=== PATIENT | female | born 1945 | race Caucasian/White ===

== ENCOUNTER 2019-11-18 12:57 | Outpatient (RCR) | payer SELFPAY | END 2019-11-26 00:01 | LOC: SPT 12:57 | PROVIDERS: Family Provider Family Medicine | DX: M54.5 Low back pain (principal); M25.562 Pain in left knee; M25.572 Pain in left ankle and joints of left foot | CPT/HCPCS: 97110 ×5; 97116 ×3; 97161 ==

== ENCOUNTER 2019-11-27 06:00 | Outpatient (RCR) | payer MEDICARE, BC, SELFPAY | END 2019-12-27 23:59 | disposition home or self-care (01) | LOC: APT 06:00 | PROVIDERS: Family Provider Family Medicine; PCP Family Medicine; Visit Provider Orthopaedic Surgery | DX: Z47.1 Aftercare following joint replacement surgery (principal); Z96.652 Presence of left artificial knee joint; M25.562 Pain in left knee | CPT/HCPCS: 97110; 97140 ==

== ENCOUNTER 2019-12-24 06:00 | Outpatient (RCR) | payer MEDICARE, BC, SELFPAY | END 2019-12-27 23:59 | disposition home or self-care (01) | LOC: APT 06:00 | PROVIDERS: Family Provider Family Medicine; PCP Family Medicine; Referring Provider Family Medicine; Visit Provider Family Medicine | DX: M54.5 Low back pain (principal) | CPT/HCPCS: 97110; 97112; 97140; 97161 ==

== ENCOUNTER 2019-12-28 06:00 | Outpatient (RCR) | payer MEDICARE, BC, SELFPAY | END 2020-01-25 23:59 | disposition home or self-care (01) | LOC: APT 06:00 | PROVIDERS: Family Provider Family Medicine; PCP Family Medicine; Visit Provider Orthopaedic Surgery | DX: M54.5 Low back pain (principal) | CPT/HCPCS: 97110 ==

== ENCOUNTER 2019-12-28 06:00 | Outpatient (RCR) | payer MEDICARE, BC, SELFPAY | END 2020-01-25 23:59 | disposition home or self-care (01) | LOC: APT 06:00 | PROVIDERS: Family Provider Family Medicine; PCP Family Medicine; Referring Provider Family Medicine; Visit Provider Family Medicine | DX: Z53.9 Procedure and treatment not carried out, unspecified reason (principal) | CPT/HCPCS: 97110 ==

== ENCOUNTER → 2020-01-13 14:35 | Outpatient (BNVA) | payer MEDICARE, BC, SELFPAY | PROVIDERS: Family Provider Family Medicine; PCP Family Medicine; Visit Provider Specialist | DX: G25.0 Essential tremor (principal) | CPT/HCPCS: 99214 ==

== ENCOUNTER 2020-01-27 | Outpatient (RCR) | payer MEDICARE, BC, SELFPAY | END 2020-02-13 | disposition home or self-care (01) | LOC: APT | PROVIDERS: Family Provider Family Medicine; PCP Family Medicine; Referring Provider Family Medicine; Visit Provider Family Medicine | DX: M54.5 Low back pain (principal) | CPT/HCPCS: 97110; 97530 ==

== ENCOUNTER → 2020-05-14 13:41 | Outpatient (BNVA) | payer MEDICARE, BC, SELFPAY | PROVIDERS: Family Provider Family Medicine; PCP Family Medicine; Visit Provider Specialist | DX: R25.1 Tremor, unspecified (principal) | CPT/HCPCS: 99213 ==

== ENCOUNTER 2020-08-11 08:19 | Emergency (ER) | payer MEDICARE, BC, SELFPAY ==
[2020-08-11] VITALS (7 sets, daily range): BP systolic 102–144; BP diastolic 59–73; PULSE 74–86; RESP 10–24; TEMP 36.5; O2SAT 89–97; BMI 26.6
--- NOTE | 2020-08-11 09:00 | XR_ITS ---
WS: [id number] EXAM: AP CHEST: PORTABLE UPRIGHT DATE OF EXAM: 08/11/2020, 0919 hours COMPARISON: NONE HISTORY: Patient is 74 years old with low oxygen saturation and weakness. FINDINGS: The cardiac silhouette is normal in size. The mediastinal contours are normal. The pulmonary vas cularity is normal. Chronic lung changes are demonstrated. Lungs are clear of consolidation. There is no effusion or pneumothorax. Overall bone density is decreased. Scattered degenerative changes se en in the spine and both shoulders. XR/XR chest 1V portable [id number] IMPRESSION: Chronic lung changes. No acute pulmonary disease.
--- NOTE | 2020-08-11 09:13 | CT_ITS ---
WS: [id number] EXAM: CT head wo con* [id number] DATE OF EXAMINATION: 08/11/2020, 0955 hours COMPARISON: Head CT from 09/30/2014. HISTORY: 74 years old with increasing generalized weakness. Tremors. TECHNIQUE: Thin slice imaging obtained through the brain. Viewed in brain, subdural and bone window with reconst ructions. DLP: 788.[address] scans at [facility] use at least one of these dose optimization techniques: automat ed exposure control; mA and/or kV adjustment per patient size (includes targeted exams where dose is matched to clinical indication); or iterative reconstruction. FINDINGS: There are generalized changes of age-related atrophy. John-white differentiation is normal. 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 No findings of hemorrhage, hydrocephalus, mass , mass effect or abnormal extra-axial fluid collection is seen. No acute skull abnormality is demons trated. Extracalvarial soft tissues are unremarkable. The paranasal sinuses are well pneumatized as v isualized. CT/CT head wo con* [id number] IMPRESSION: Atrophy and slight chronic white matter changes. No acute intracranial process.
--- NOTE | 2020-08-11 09:16 | ED_ITS ---
HPI - Weakness General: Chief complaint: Weakness Stated complaint: weak, CP, dizzy Time Seen by Provider: 08/11/20 08:29 Source: patient Mode of arrival: ambulatory Limitations: no limitations History of Present Illness: HPI Narrative: falls, right rib pain, dizziness, weakness Complaint: generalized weakness Onset (ago): week(s) (1 week ago ) Duration: intermittent Location: generalized Severity: mild Severity scale (1-10): 3 Quality: sharp Associated symptoms: Reports chest pain and syncope; Denies fever(s) or headache(s) Review of Systems Const: Denies: fever(s), body aches or night sweats Eyes: Denies: change in vision Card: Reports: chest pain, lightheadedness and syncope; Denies: dyspnea on exertion Resp: Denies: dyspnea GI: Denies: abdominal pain Neuro: Denies: headache(s) PFSH ED PFSH: Family History Denies family history of Diabetes CAD (coronary artery disease) Cancer Hypertension Stroke Social History Smoking and tobacco status: never smoked Alcohol intake: never History of recent travel: Yes (traveled tp [facility]) Physical Exam Const: COMMON NORMALS: no acute distress, patient oriented x3, no limitations and alert GENERAL APPEARANCE: cooperative and comfortable ORIENTATION/CONSCIOUSNESS: Yes awake, Yes oriented to person, Yes oriented to place and Yes oriented to time HENMT: COMMON NORMALS: normocephalic, atraumatic, external ears normal, EAC's normal, TM's normal bilaterally and Normal external nose present HEAD & SCALP: normal to inspection, normocephalic and atraumatic FACE & SINUS: normal facial exam, sinuses nontender and face symmetric NOSE: Normal external nose present, Normal nares present and No nasal discharge present EXTERNAL EAR: Yes external ears normal EXTERNAL AUDITORY CANAL: EAC's normal TYMPANIC MEMBRANE: TM's normal bilaterally MOUTH: Normal oral and palatal mucosa present, lip normal and tongue normal THROAT: posterior oropharynx normal, tonsils normal and uvula midline Eye: COMMON NORMALS: Equal, round and reactive pupils present, EOMs intact bilaterally and conjunctivae normal GENERAL EYE: appearance normal, both eyes and all related structures and normal light reflex EYELID: eyelids normal CONJUNCTIVA: Yes conjunctivae normal PUPIL: Yes Equal, round and reactive pupils present EOM: Yes EOM abnormal DIRECT OPHTHALMOSCOPY: Yes normal light reflex Neck/C-Spine: COMMON NORMALS: full ROM, no lymphadenopathy, supple, no meningeal signs, no JVD and Thyroid normal GENERAL: Yes normal visual inspection THYROID: Thyroid normal CERVICAL SPINE: Yes cervical ROM normal and Yes normal cervical lordosis Lymph: LYMPHATIC: no lymphadenopathy noted Chest: COMMONS NORMALS: normal inspection of the chest and normal palpation of entire chest wall CHEST: Yes localized rib tenderness with anteroposterior compression (right side) Location: 10th rib, 11th rib and 12th rib Resp: COMMON NORMALS: normal respiratory effort, No retractions and clear to auscultation bilaterally AUSCULTATION: clear to auscultation bilaterally Cardio: COMMON NORMALS: no JVD, regular rate, regular rhythm, S1 normal heart sound present, S2 normal heart sound present, No gallops present (Cardio), No clicks present (Cardio), No murmurs present (Cardio), No rub (Cardio) and Peripheral pulses 2+ throughout RATE: regular rate RHYTHM: regular rhythm HEART SOUNDS: S1 normal heart sound present and S2 normal heart sound present PERIPHERAL PULSES: Peripheral pulses 2+ throughout GI: COMMON NORMALS: Normal to inspection, nondistended, normoactive bowel sounds present, Soft to palpation, non-tender and no masses PALPATION: Yes Soft to palpation : COMMON NORMALS: Yes no CVA tenderness and Yes normal external appearance BLADDER/KIDNEY EXAM: Yes no CVA tenderness Back/Pelvis: COMMON NORMALS: no CVA tenderness, thoracic and lumbar spine normal to inspection, no thoracic nor lumbar tenderness and thoraco-lumbar ROM normal Extremity: COMMON NORMALS: normal to inspection, full ROM, capillary refill normal, no joint enlargement, no clubbing, cyanosis or edema, no calf tenderness and no pedal edema GENERAL: Yes normal exam except as noted Neuro: COMMON NORMALS: patient oriented x3, moves all extremities, no focal motor deficits, no sensory deficits noted and gait normal SENSORIUM/ORIENTATION: Yes alert, Yes oriented to person, Yes oriented to place and Yes oriented to time MENINGEAL SIGNS: Yes no meningeal signs Psych: COMMON NORMALS: mental status grossly normal, Normal thought process present, cooperative, normal affect, speech normal and activity/motor behavior normal SPEECH: Yes normal speech THOUGHT PROCESS: Normal thought process present Skin: COMMON NORMALS: no rashes or lesions noted, no wounds and turgor normal GENERAL SKIN EXAM: no rashes or lesions noted and turgor normal Course ED course: Pt presents with complaints of dizziness, weakness, and syncope over the past one week. She states she feels light headed with exertion and mild chest pain in center of chest. No fever or cough. No SOB. Pt vitals stable upon arrival, due to essential tremors, the right hand is difficult to get a good pulse ox reading on. Reevaluation(s): Reevaluation #1: CT head shows no acute bleed. EKG is normal. CXR shows no acute infiltrates. Rib xray notes nondisplaced rib fx 9th. Awaiting UA results. Fluids ordered. Oxygen remains stable on room air. Time: 10:26 Reevaluation #2: Covid screening negative; awaiting second trop in hopes of DC. Urine is concentrated with leuk est and bacteria. Rehydrating and treatment with IV rocephin. Vitals remain stable. Time: 12:36 Reevaluation #3: Orthostatics were negative. Pt feeling better after rehydrated with 1 L ns. Will proceed with dispo. Troponin repeat was 33. CPK negative. Follow up with PCP in 2 days and return as needed. Stop using nitro patch for knee in case it is causing unwanted BP drop. Time: 13:52 Vital Signs: Vital signs: Vital Signs Temperature 97.7 F 08/11/20 08:46 Pulse Rate 78 08/11/20 13:48 Respiratory Rate 16 08/11/20 13:48 Blood Pressure 125/73 08/11/20 13:48 Pulse Oximetry 97 08/11/20 13:48 MDM - Weakness Lab Data: Labs: Lab Results 08/11/20 08/11/20 08/11/20 Range/Units 09:43 09:43 09:43 WBC 9.9 (4.0-10.0) 10^3/ uL RBC 4.17 (4.1-5.3) 10^6/u L Hgb 13.2 (11.5-15.3) g/dL Hct 40.0 (37.0-47.0) % MCV 95.9 (81-99) fL MCH 31.7 (28.0-34.0) pg MCHC 33.0 (30.0-36.0) g/dL RDW 12.9 (12.1-15.1) % Plt Count 223 (130-400) 10^3/c mm MPV 8.8 (7.4-10.4) fL Neut % (Auto) 81.6 % Lymph % (Auto) 9.7 % Hockley % (Auto) 6.4 % Eos % (Auto) 1.5 % Baso % (Auto) 0.5 % Neut # (Auto) 8.05 H (1.8-7.7) 10^3/u L Lymph # (Auto) 1.0 (0.8-4.8) 10^3/u L [place] # (Auto) 0.6 (0.2-0.9) 10^3/u L Eos # (Auto) 0.2 (0.0-0.8) 10^3/u L Baso # (Auto) 0.1 (0.0-0.1) 10^3/u L Nucleated RBC % (a uto) 0 % Nucleated RBCs # 0.0 /100WBC Sodium 141 (136-145) mmol/L Potassium 4.1 (3.5-5.1) mmol/L Chloride 103 (98-107) mmol/L Carbon Dioxide 27 (22-29) mmol/L Anion Gap 15.1 (5-19) BUN 21 (8-23) mg/dL Creatinine 1.0 H (0.5-0.9) mg/dL GFR Calculation Not Reportable Glucose 81 (65-115) mg/dL Calculated Osmolal ity 288 (285-295) mOsm/k g Calcium 9.3 (8.5-10.5) mg/dL Total Bilirubin 0.3 (0.15-1.2) mg/dL AST 21 (0-32) U/L ALT < 5 (0-33) U/L Alkaline Phosphata se 30 L (35-105) IU/L Creatine Kinase 92 (26-192) U/L Troponin T Gen 5 n g/L 39 H (0-10) ng/L Total Protein 7.0 (6.6-8.7) g/dL Albumin 4.0 (3.5-5.2) g/dL Globulin 3.0 (1.3-4.6) g/dL Urine Color (Yellow) Urine Appearance (CLEAR) Urine pH (5-7) Ur Specific Gravit y (1.005-1.030) Urine Protein (Negative) Urine Glucose (UA) (Normal) Urine Ketones (Negative) Urine Blood (Negative) Urine Nitrate (Negative) Urine Bilirubin (Negative) Urine Urobilinogen (Negative) mg/dL Ur Leukocyte Lucretia ase (Negative) Urine RBC (0-2) /hpf Urine WBC (0-5) /hpf Ur Squamous Epith Cells (0-5) /hpf Amorphous Sediment Urine Bacteria (NONE) /hpf SARS-CoV-2 Ag (Rap id) (Negative) 08/11/20 08/11/20 08/11/20 Range/Units 10:16 10:56 12:42 WBC (4.0-10.0) 10^3/ uL RBC (4.1-5.3) 10^6/u L Hgb (11.5-15.3) g/dL Hct (37.0-47.0) % MCV (81-99) fL MCH (28.0-34.0) pg MCHC (30.0-36.0) g/dL RDW (12.1-15.1) % Plt Count (130-400) 10^3/c mm MPV (7.4-10.4) fL Neut % (Auto) % Lymph % (Auto) % Hockley % (Auto) % Eos % (Auto) % Baso % (Auto) % Neut # (Auto) (1.8-7.7) 10^3/u L Lymph # (Auto) (0.8-4.8) 10^3/u L [place]ock[place] # (Auto) (0.2-0.9) 10^3/u L Eos # (Auto) (0.0-0.8) 10^3/u L Baso # (Auto) (0.0-0.1) 10^3/u L Nucleated RBC % (a uto) % Nucleated RBCs # /100WBC Sodium (136-145) mmol/L Potassium (3.5-5.1) mmol/L Chloride (98-107) mmol/L Carbon Dioxide (22-29) mmol/L Anion Gap (5-19) BUN (8-23) mg/dL Creatinine (0.5-0.9) mg/dL GFR Calculation Glucose (65-115) mg/dL Calculated Osmolal ity (285-295) mOsm/k g Calcium (8.5-10.5) mg/dL Total Bilirubin (0.15-1.2) mg/dL AST (0-32) U/L ALT (0-33) U/L Alkaline Phosphata se (35-105) IU/L Creatine Kinase (26-192) U/L Troponin T Gen 5 n g/L 33 H (0-10) ng/L Total Protein (6.6-8.7) g/dL Albumin (3.5-5.2) g/dL Globulin (1.3-4.6) g/dL Urine Color Yellow (Yellow) Urine Appearance Cloudy (CLEAR) Urine pH 5.0 (5-7) Ur Specific Gravit y 1.015 (1.005-1.030) Urine Protein 3+ H (Negative) Urine Glucose (UA) Norm (Normal) Urine Ketones Negative (Negative) Urine Blood 3+ H (Negative) Urine Nitrate Negative (Negative) Urine Bilirubin Neg (Negative) Urine Urobilinogen Norm (Negative) mg/dL Ur Leukocyte Lucretia ase 2+ H (Negative) Urine RBC 10-15 H (0-2) /hpf Urine WBC Too numerous to c nt H (0-5) /hpf Ur Squamous Epith Cells 0-4 H (0-5) /hpf Amorphous Sediment Not Reportable Urine Bacteria 4+ H (NONE) /hpf SARS-CoV-2 Ag (Rap id) Negative (Negative) Imaging Data^: CXR: Radiologist's impression: [place] [address] XRay Report Signed Patient: Perlita Olvera Unit #: [id number] : 1945 Age/Sex: 74 / F ADM Date: 08/11/20 Loc: ER Room/Bed: Attending Dr: Ordering Provider/Ordering MD: Tiffany Headley NP Date of Service: 08/11/20 Procedure(s): XR ribs RT 2V* [id number] Accession Number(s): [id number] Report Number: [id number] WS: [id number] EXAM: RIGHT RIB SERIES DATE OF EXAMINATION: 08/11/2020, 0921 hours COMPARISON: Chest x-ray from the same date. HISTORY: Patient is 74 years old with right rib pain. Patient reports rib fracture. FINDINGS: Bone density appears fairly normal. There are findings of a nondisplaced anterior lateral T9 rib fracture. No other rib fracture is otherwise seen. No right pleural effusion. XR/XR ribs RT 2V* [id number] IMPRESSION: Nondisplaced anterior lateral right T9 rib fracture. Dictated By: Negrito Stone MD Signed By: Negrito Stone MD Signed Date/Time: 08/11/20939 DD/ 0937 [place] [address] XRay Report Signed Patient: Perlita Olvera Unit #: [id number] : 1945 Age/Sex: 74 / F ADM Date: 08/11/20 Loc: ER Room/Bed: Attending Dr: Ordering Provider/Ordering MD: Tiffany Headley NP Date of Service: 08/11/20 Procedure(s): XR chest 1V portable [id number] Accession Number(s): [id number] Report Number: [id number] WS: [id number] EXAM: AP CHEST: PORTABLE UPRIGHT DATE OF EXAM: 08/11/2020, 0919 hours COMPARISON: NONE HISTORY: Patient is 74 years old with low oxygen saturation and weakness. FINDINGS: The cardiac silhouette is normal in size. The mediastinal contours are normal. The pulmonary vascularity is normal. Chronic lung changes are demonstrated. Lungs are clear of consolidation. There is no effusion or pneumothorax. Overall bone density is decreased. Scattered degenerative changes seen in the spine and both shoulders. XR/XR chest 1V portable [id number] IMPRESSION: Chronic lung changes. No acute pulmonary disease. Dictated By: Negrito Stone MD Signed By: Negrito Stone MD Signed Date/Time: 08/11/20934 DD/ 0931 [place] [address] CT Scan Report Signed Patient: Perlita Olvera Unit #: [id number] : 1945 18 Age/Sex: 74 / F ADM Date: 08/11/20 Loc: ER Room/Bed: Attending Dr: Ordering Provider/Ordering MD: Tiffany Headley NP Date of Service: 08/11/20 Procedure(s): CT head wo con* [id number] Accession Number(s): [id number] Report Number: [id number] WS: [id number] EXAM: CT head wo con* [id number] DATE OF EXAMINATION: 08/11/2020, 0955 hours COMPARISON: Head CT from 09/30/2014. HISTORY: 74 years old with increasing generalized weakness. Tremors. TECHNIQUE: Thin slice imaging obtained through the brain. Viewed in brain, subdural and bone window with reconstructions. DLP: 788.[address] scans at [facility] use at least one of these dose optimization techniques: automated exposure control; mA and/or kV adjustment per patient size (includes targeted exams where dose is matched to clinical indication); or iterative reconstruction. FINDINGS: There are generalized changes of age-related atrophy. John-white differentiation is normal. There are slight changes of decreased attenuation within the white matter felt to represent sequelae from chronic small vessel white matter microangiopathic change. No findings of hemorrhage, hydrocephalus, mass, mass effect or abnormal extra-axial fluid collection is seen. No acute skull abnormality is demonstrated. Extracalvarial soft tissues are unremarkable. The paranasal sinuses are well pneumatized as visualized. CT/CT head wo con* [id number] IMPRESSION: Atrophy and slight chronic white matter changes. No acute intracranial process. Dictated By: Negrito Stone MD Signed By: Negrito Stone MD Signed Date/Time: 08/11/20 1007 DD/ 1004 Discharge Plan Discharge Patient Disposition: Home Clinical Impression: Dehydration, UTI (urinary tract infection) Condition: Stable Prescriptions: New Macrobid 100 mg capsule 100 mg PO BID 7 Days Qty: 14 RF: 0 Pyridium 200 mg tablet 200 mg PO Q8H Qty: 7 RF: 0 No Action tizanidine 4 mg capsule 4 mg PO Q6H PRN (Reason: Muscle Spasm) RF: 0 dexamethasone 0.1 % drops,suspension 1 drop ophthalmic (eye) DAILY RF: 0 multivitamin Capsule 1 cap PO DAILY RF: 0 magnesium 250 mg tablet 500 mg PO BID RF: 0 vitamin B complex Capsule 1 cap PO DAILY RF: 0 calcium carbonate 500 mg calcium (1,250 mg) capsule 500 mg PO DAILY RF: 0 tramadol 50 mg tablet 50 mg PO Q6H PRN (Reason: Pain) RF: 0 meloxicam 15 mg tablet 15 mg PO DAILY RF: 0 acetaminophen [Tylenol Extra Strength] 500 mg tablet 1,000 mg PO BID PRN (Reason: Pain) RF: 0 carbidopa-levodopa [Sinemet] 25-100 mg tablet 1 tab PO BID Qty: 60 RF: 5 nitroglycerin 0.1 mg/hr patch 24 hour See Rx Instructions .ROUTE .COMPLEX RF: 0 Vitamin C 1 tab PO DAILY RF: 0 Vitamin D3 1 tab PO DAILY RF: 0 primidone 50 mg tablet 100 mg PO BID RF: 0 Discharge Orders: Discharge Order (Routine); Ordered 08/11/20 Ordered By: Tiffany Headley Referrals: Vipul Redding MD [Primary Care Provider] - Discharge Diet: Usual diet Discharge Activity: Increase activity as tolerated Activity Restrictions/Additional Instructions: Increase fluid intake. Follow up with PCP in 2 days. Stop using nitro patch for knee until you speak with Dr. Leavitt. Coding Level of Care Code ED Classified Ad Taker for William Fwd Exam Comprehensive
--- NOTE | 2020-08-11 09:21 | XR_ITS ---
WS: [id number] EXAM: RIGHT RIB SERIES DATE OF EXAMINATION: 08/11/2020, 0921 hours COMPARISON: Chest x-ray from the same date. HISTORY: Patient is 74 years old with right rib pain. Patient reports rib fracture. FINDINGS: Bone density appears fairly normal. There are findings of a nondisplaced anterior lateral T9 rib frac ture. No other rib fracture is otherwise seen. No right pleural effusion. XR/XR ribs RT 2V* [id number] IMPRESSION: Nondisplaced anterior lateral right T9 rib fracture.
[2020-08-11] MEDS: aspirin 325 mg Tablet PO (09:33)
[2020-08-11 09:49] LABS: Basophils # 0.1 10^3/uL (0.0-0.1); Basophils % 0.5 %; Eosinophils # 0.2 10^3/uL (0.0-0.8); Eosinophils % 1.5 %; Hemoglobin 13.2 g/dL (11.5-15.3); Lymphocytes % 9.7 %; Mean Corpuscular Hemoglobin 31.7 pg (28.0-34.0); Mean Corpuscular Volume 95.9 fL (81-99); Mean Platelet Volume 8.8 fL (7.4-10.4); Monocytes # 0.6 10^3/uL (0.2-0.9); Monocytes % 6.4 %; Neutrophils # 8.05 10^3/uL (1.8-7.7); Neutrophils % 81.6 %; Nucleated Red Blood Cells % 0 %; Platelet Count 223 10^3/cmm (130-400); Red Blood Count 4.17 10^6/uL (4.1-5.3); Red Cell Distribution Width 12.9 % (12.1-15.1); White Blood Count 9.9 10^3/uL (4.0-10.0)
--- NOTE | 2020-08-11 09:55 | PC.NURSE ---
pt off unit to CT
[2020-08-11 10:11] LABS: Alanine Aminotransferase < 5 U/L (0-33); Alkaline Phosphatase 30 IU/L (35-105); Anion Gap 15.1 (5-19); Aspartate Amino Transferase 21 U/L (0-32); Blood Urea Nitrogen 21 mg/dL (8-23); Calcium 9.3 mg/dL (8.5-10.5); Carbon Dioxide 27 mmol/L (22-29); Chloride 103 mmol/L (98-107); Creatine Phosphokinase 92 U/L (26-192); Glucose 81 mg/dL (65-115); Osmolality Calculated 288 mOsm/kg (285-295); Potassium 4.1 mmol/L (3.5-5.1); Sodium 141 mmol/L (136-145); Total Bilirubin 0.3 mg/dL (0.15-1.2)
[2020-08-11 10:12] LABS: Troponin T (5th) Once 39 ng/L (0-10)
[2020-08-11 10:27] LABS: Add Urine Microscopic? YES; Bilirubin Urine Neg (Negative); Blood Urine 3+ (Negative); Glucose Urine UA Norm (Normal); Ketones Urine Negative (Negative); Leukocyte Esterase Urine 2+ (Negative); Nitrate Urine Negative (Negative); Protein Urine 3+ (Negative); Specific Gravity, Urine 1.015 (1.005-1.030); Urine Appearance Cloudy (CLEAR); Urine Color Yellow (Yellow); Urobilinogen Urine Norm (Negative)
[2020-08-11] MEDS: sodium chloride 0.9% 1,000 ML 1000 ML IV (10:34)
[2020-08-11 11:07] LABS: Bacteria Urine 4+ /hpf; Squamous Epithelial Cell Urine 0-4 /hpf (0-5); WBC Urine TOO NUMEROUS TO CNT /hpf (0-5)
[2020-08-11 11:08] LABS: Add Urine Culture? Yes
[2020-08-11] MEDS: cefTRIAXone 1,000 MG in sodium chloride 0.9% (plus) 50 ML 100 MG IV (11:57)
[2020-08-11 12:13] LABS: SARS Covid-2 Antigen Negative (Negative)
[2020-08-11 13:05] LABS: Troponin T (5th) Once 33 ng/L (0-10)
--- NOTE | 2020-08-11 13:06 | ECG_ITS ---
[facility] Test Date: 2020-08-11 Pat Name: Perlita Olvera Department: Room: Gender: Female [employer]: : 1945 Requested By: Tiffany Headley Order Number: [id number] Luis MD: Claire Pedraza M.D. Measurements Intervals [place] Rate: 73 P: 73 CT: 230 QRS: 23 QRSD: 90 T: 56 QT: 397 QTc: 439 Interpretive Statements SINUS RHYTHM WITH FIRST DEGREE AV BLOCK No previous ECG available for comparison Electronically Signed On 08-11-2020 14:25:35 CDT by Claire Pedraza M.D. [email or web address]
== END 2020-08-11 14:02 | disposition home or self-care (01) ==
PROVIDERS: Emergency Provider Nurse Practitioner Family; PCP Family Medicine
DX: N39.0 Urinary tract infection, site not specified (principal); E86.0 Dehydration
CPT/HCPCS: 12345; 36415; 70450; 71045; 71100; 80053; 81001; 82550; 84484; 85025; 87077; 87086; 87186; 87426; 93005; 96361; 96365; 99283; 99284; J0696; J7040

== ENCOUNTER → 2020-08-31 09:36 | Outpatient (BNVA) | payer MEDICARE, BC, SELFPAY | PROVIDERS: PCP Family Medicine; Visit Provider Specialist | DX: G43.909 Migraine, unspecified, not intractable, without status migrainosus (principal); M25.551 Pain in right hip; G25.0 Essential tremor; F32.9 Major depressive disorder, single episode, unspecified; M54.17 Radiculopathy, lumbosacral region | CPT/HCPCS: 99214 ==

== ENCOUNTER → 2020-09-17 10:20 | Outpatient (BNVA) | payer MEDICARE, BC, SELFPAY | PROVIDERS: PCP Family Medicine; Visit Provider Orthopaedic Surgery | DX: M85.88 Other specified disorders of bone density and structure, other site (principal); M47.896 Other spondylosis, lumbar region; M54.5 Low back pain | CPT/HCPCS: 72114; 72120 ==

== ENCOUNTER → 2020-09-25 10:17 | Outpatient (BNVA) | payer MEDICARE, BC, SELFPAY | PROVIDERS: PCP Family Medicine; Referring Provider Specialist; Visit Provider Anesthesiology Pain Medicine | DX: M48.062 Spinal stenosis, lumbar region with neurogenic claudication (principal); M51.36 Other intervertebral disc degeneration, lumbar region; M47.816 Spondylosis without myelopathy or radiculopathy, lumbar region; M54.17 Radiculopathy, lumbosacral region | CPT/HCPCS: 99205 ==

== ENCOUNTER → 2020-10-12 13:08 | Outpatient (BNVA) | payer MEDICARE, BC, SELFPAY | PROVIDERS: PCP Family Medicine; Visit Provider Anesthesiology Pain Medicine | DX: M54.17 Radiculopathy, lumbosacral region (principal); M51.36 Other intervertebral disc degeneration, lumbar region; M48.062 Spinal stenosis, lumbar region with neurogenic claudication; Z79.891 Long term (current) use of opiate analgesic | CPT/HCPCS: 64483; 64484; J1040; J1100; J3490 ==

== ENCOUNTER → 2020-10-29 08:43 | Outpatient (BNVA) | payer MEDICARE, BC, SELFPAY | PROVIDERS: PCP Family Medicine; Visit Provider Anesthesiology Pain Medicine | DX: G89.29 Other chronic pain (principal); M48.062 Spinal stenosis, lumbar region with neurogenic claudication; M51.36 Other intervertebral disc degeneration, lumbar region; M47.816 Spondylosis without myelopathy or radiculopathy, lumbar region; M54.17 Radiculopathy, lumbosacral region; M25.551 Pain in right hip; Z79.891 Long term (current) use of opiate analgesic | CPT/HCPCS: 99214 ==

== ENCOUNTER 2020-10-29 09:39 | Outpatient (CLI) | payer MEDICARE, BC, SELFPAY ==
--- NOTE | 2020-10-29 09:45 | XR_ITS ---
WS: [id number] Bilateral hips, AP and frog leg views, 10/29/2020 Clinical Data: M19.90 - Unspecified osteoarthritis, unspecified site Comparison: Right hip, 11/05/2018. Findings: Right hip: The acetabular lip again is seen. No narrowing, erosion or sclerosis is present. The pubic symphysis and right SI joint are unremarkable. No fractures or dislocations are seen. Soft tissues are normal. Left hip: A prominent acetabular lip is seen. No narrowing, erosion or sclerosis is present. The pubic symphysi s and left SI joint are unremarkable. There are no fractures or dislocations. The soft tissues are no rmal. XR/XR hip BI 3-4V wo/[place] [id number] Impression: Bilateral acetabular lips.
== END 2020-10-29 09:40 | disposition home or self-care (01) ==
LOC: RADWPI 09:44
PROVIDERS: PCP Family Medicine; Visit Provider Anesthesiology Pain Medicine
DX: M19.90 Unspecified osteoarthritis, unspecified site (principal)
CPT/HCPCS: 73522

== ENCOUNTER 2020-11-11 06:00 | Outpatient (RCR) | payer MEDICARE, BC, SELFPAY | END 2020-11-26 23:59 | disposition home or self-care (01) | LOC: APT 06:00 | PROVIDERS: PCP Family Medicine; Referring Provider Anesthesiology Pain Medicine; Visit Provider Anesthesiology Pain Medicine | DX: M54.5 Low back pain (principal); G89.29 Other chronic pain | CPT/HCPCS: 97110; 97112; 97162 ==

== ENCOUNTER → 2020-11-23 09:53 | Outpatient (BNVA) | payer MEDICARE, BC, SELFPAY | PROVIDERS: PCP Family Medicine; Visit Provider Anesthesiology Pain Medicine | DX: M48.062 Spinal stenosis, lumbar region with neurogenic claudication (principal); M54.5 Low back pain; M51.36 Other intervertebral disc degeneration, lumbar region; M47.816 Spondylosis without myelopathy or radiculopathy, lumbar region; M54.17 Radiculopathy, lumbosacral region; M25.551 Pain in right hip | CPT/HCPCS: 99214 ==

== ENCOUNTER 2020-11-27 06:00 | Outpatient (RCR) | payer MEDICARE, BC, SELFPAY | END 2020-12-27 23:59 | disposition home or self-care (01) | LOC: APT 06:00 | PROVIDERS: PCP Family Medicine; Referring Provider Anesthesiology Pain Medicine; Visit Provider Anesthesiology Pain Medicine | DX: M54.5 Low back pain (principal); G89.29 Other chronic pain | CPT/HCPCS: 97110; 97140 ==

== ENCOUNTER → 2020-12-21 09:47 | Outpatient (BNVA) | payer MEDICARE, BC, SELFPAY | PROVIDERS: PCP Family Medicine; Visit Provider Anesthesiology Pain Medicine | DX: M48.062 Spinal stenosis, lumbar region with neurogenic claudication (principal); M51.36 Other intervertebral disc degeneration, lumbar region; M47.816 Spondylosis without myelopathy or radiculopathy, lumbar region; M54.17 Radiculopathy, lumbosacral region; M25.551 Pain in right hip; M25.561 Pain in right knee | CPT/HCPCS: 99214 ==

== ENCOUNTER → 2020-12-23 07:58 | Outpatient (BNVA) | payer MEDICARE, BC, SELFPAY | PROVIDERS: PCP Family Medicine; Visit Provider Specialist | DX: G43.909 Migraine, unspecified, not intractable, without status migrainosus (principal); G24.9 Dystonia, unspecified; G25.0 Essential tremor; F32.9 Major depressive disorder, single episode, unspecified; M47.816 Spondylosis without myelopathy or radiculopathy, lumbar region | CPT/HCPCS: 99213 ==

== ENCOUNTER 2020-12-28 06:00 | Outpatient (RCR) | payer MEDICARE, BC, SELFPAY | END 2021-01-24 23:59 | disposition home or self-care (01) | LOC: APT 06:00 | PROVIDERS: PCP Family Medicine; Referring Provider Anesthesiology Pain Medicine; Visit Provider Anesthesiology Pain Medicine | DX: M54.5 Low back pain (principal); G89.29 Other chronic pain | CPT/HCPCS: 97110 ==

== ENCOUNTER → 2021-01-18 08:57 | Outpatient (BNVA) | payer MEDICARE, BC, SELFPAY | PROVIDERS: PCP Family Medicine; Visit Provider Anesthesiology Pain Medicine | DX: M48.062 Spinal stenosis, lumbar region with neurogenic claudication (principal); M51.36 Other intervertebral disc degeneration, lumbar region; M47.816 Spondylosis without myelopathy or radiculopathy, lumbar region; M54.17 Radiculopathy, lumbosacral region; M16.11 Unilateral primary osteoarthritis, right hip | CPT/HCPCS: 99214 ==

== ENCOUNTER 2021-01-25 06:00 | Outpatient (RCR) | payer MEDICARE, BC, SELFPAY | END 2021-02-24 23:59 | disposition home or self-care (01) | LOC: APT 06:00 | PROVIDERS: PCP Family Medicine; Referring Provider Anesthesiology Pain Medicine; Visit Provider Anesthesiology Pain Medicine | DX: M54.5 Low back pain (principal); G89.29 Other chronic pain | CPT/HCPCS: 97110 ==

== ENCOUNTER → 2021-02-10 10:37 | Outpatient (BNVA) | payer MEDICARE, BC, SELFPAY | PROVIDERS: PCP Family Medicine; Visit Provider Anesthesiology Pain Medicine | DX: M48.062 Spinal stenosis, lumbar region with neurogenic claudication (principal); M51.36 Other intervertebral disc degeneration, lumbar region; M47.816 Spondylosis without myelopathy or radiculopathy, lumbar region; M54.17 Radiculopathy, lumbosacral region; M25.551 Pain in right hip | CPT/HCPCS: 99214 ==

== ENCOUNTER → 2021-05-04 14:03 | Outpatient (BNVA) | payer MEDICARE, BC, SELFPAY | PROVIDERS: PCP Family Medicine; Visit Provider Anesthesiology Pain Medicine | DX: M47.816 Spondylosis without myelopathy or radiculopathy, lumbar region (principal); M48.062 Spinal stenosis, lumbar region with neurogenic claudication | CPT/HCPCS: 64635; 64636; J1030 ==

== ENCOUNTER → 2021-05-18 10:46 | Outpatient (BNVA) | payer MEDICARE, BC, SELFPAY | PROVIDERS: PCP Family Medicine; Visit Provider Anesthesiology Pain Medicine | DX: M48.062 Spinal stenosis, lumbar region with neurogenic claudication (principal); M51.36 Other intervertebral disc degeneration, lumbar region; M47.816 Spondylosis without myelopathy or radiculopathy, lumbar region; M54.17 Radiculopathy, lumbosacral region; M25.551 Pain in right hip | CPT/HCPCS: 99214 ==

== ENCOUNTER → 2021-06-04 09:10 | Outpatient (BNVA) | payer MEDICARE, BC, SELFPAY | PROVIDERS: PCP Family Medicine; Visit Provider Anesthesiology Pain Medicine | DX: M47.816 Spondylosis without myelopathy or radiculopathy, lumbar region (principal); M48.062 Spinal stenosis, lumbar region with neurogenic claudication | CPT/HCPCS: 64635; 64636; J1030 ==

== ENCOUNTER → 2021-06-18 10:47 | Outpatient (BNVA) | payer MEDICARE, BC, SELFPAY | PROVIDERS: PCP Family Medicine; Visit Provider Anesthesiology Pain Medicine | DX: M48.062 Spinal stenosis, lumbar region with neurogenic claudication (principal); M51.36 Other intervertebral disc degeneration, lumbar region; M47.816 Spondylosis without myelopathy or radiculopathy, lumbar region; M54.17 Radiculopathy, lumbosacral region; M16.11 Unilateral primary osteoarthritis, right hip | CPT/HCPCS: 99214 ==

== ENCOUNTER → 2021-07-06 09:57 | Outpatient (BNVA) | payer MEDICARE, BC, SELFPAY | PROVIDERS: PCP Family Medicine; Visit Provider Anesthesiology Pain Medicine | DX: M51.36 Other intervertebral disc degeneration, lumbar region (principal); M48.062 Spinal stenosis, lumbar region with neurogenic claudication; M47.816 Spondylosis without myelopathy or radiculopathy, lumbar region; M54.17 Radiculopathy, lumbosacral region; M16.0 Bilateral primary osteoarthritis of hip; Z79.891 Long term (current) use of opiate analgesic | CPT/HCPCS: 99214 ==

== ENCOUNTER → 2021-08-03 09:14 | Outpatient (BNVA) | payer MEDICARE, BC, SELFPAY | PROVIDERS: PCP Family Medicine; Visit Provider Anesthesiology Pain Medicine | DX: M51.36 Other intervertebral disc degeneration, lumbar region (principal); M48.062 Spinal stenosis, lumbar region with neurogenic claudication; M47.816 Spondylosis without myelopathy or radiculopathy, lumbar region; M54.17 Radiculopathy, lumbosacral region; M25.551 Pain in right hip; Z79.891 Long term (current) use of opiate analgesic | CPT/HCPCS: 99214 ==

== ENCOUNTER 2021-08-03 10:49 | Outpatient (RCR) | payer MEDICARE, BC, SELFPAY | END 2021-08-26 23:59 | disposition home or self-care (01) | LOC: APS 10:49 | PROVIDERS: PCP Family Medicine; Referring Provider Psychiatry & Neurology Neurology; Visit Provider Psychiatry & Neurology Neurology | DX: G20 Parkinson's disease (principal); G25.2 Other specified forms of tremor; Z79.899 Other long term (current) drug therapy | CPT/HCPCS: 92507; 92524; 97110; 97112; 97162; 97164 ==

== ENCOUNTER 2021-08-27 06:00 | Outpatient (RCR) | payer MEDICARE, BC, SELFPAY | END 2021-09-26 23:59 | disposition home or self-care (01) | LOC: APS 06:00 | PROVIDERS: PCP Family Medicine; Referring Provider Psychiatry & Neurology Neurology; Visit Provider Psychiatry & Neurology Neurology | DX: G20 Parkinson's disease (principal); G25.2 Other specified forms of tremor; Z79.899 Other long term (current) drug therapy | CPT/HCPCS: 92507; 97110; 97112; 97164 ==

== ENCOUNTER → 2021-11-02 09:44 | Outpatient (BNVA) | payer MEDICARE, BC, SELFPAY | PROVIDERS: PCP Family Medicine; Visit Provider Anesthesiology Pain Medicine | DX: M51.36 Other intervertebral disc degeneration, lumbar region (principal); M48.062 Spinal stenosis, lumbar region with neurogenic claudication; M47.816 Spondylosis without myelopathy or radiculopathy, lumbar region; M54.17 Radiculopathy, lumbosacral region; M25.551 Pain in right hip; M79.604 Pain in right leg; M79.605 Pain in left leg; Z79.891 Long term (current) use of opiate analgesic | CPT/HCPCS: 99214 ==

== ENCOUNTER 2022-01-26 09:34 | Outpatient (CLI) | payer MEDICARE, BC, SELFPAY ==
--- NOTE | 2022-01-26 09:48 | MM_ITS ---
WS: [id number] BILATERAL DIGITAL SCREENING MAMMOGRAPHY WITH CAD CLINICAL INFORMATION: SCREENING HISTORY: Screening mammogram. No current complaints. COMPARISON: None. TECHNIQUE: Bilateral CC and MLO views. FINDINGS: Scattered fibroglandular densities bilaterally. 5 mm asymmetric density central RIGHT breast along th e posterior nipple line. Recommend spot compression views and ultrasound for further evaluation. LEFT breast is unremarkable. MM/[place] [id number] IMPRESSION: BI-RADS: 0-Incomplete: Need additional imaging evaluation FOLLOW UP: Need Additional Imaging Recommend RIGHT diagnostic mammography and ultrasound for further evaluation.
== END 2022-01-26 09:35 | disposition home or self-care (01) ==
PROVIDERS: PCP Family Medicine; Visit Provider Family Medicine
DX: Z12.31 Encounter for screening mammogram for malignant neoplasm of breast (principal)
CPT/HCPCS: 77067

== ENCOUNTER 2022-02-14 10:37 | Outpatient (CLI) | payer MEDICARE, BC, SELFPAY ==
--- NOTE | 2022-02-14 10:41 | MM_ITS ---
WS: [id number] RIGHT 3D TOMOSYNTHESIS DIGITAL MAMMOGRAPHY WITH CAD CLINICAL INFORMATION: INCONCLUSIVE MAMMOGRAM COMPARISON: January 26, 2022 TECHNIQUE: 3 views of the right breast were obtained. FINDINGS: Scattered fibroglandular densities of the right breast. 5 mm asymmetric density central RIGHT breast appears to persist on the spot compression views. Ultrasound is pending. ULTRASOUND BREAST RIGHT TECHNIQUE: Ultrasound right breast focused area of concern. CLINICAL INFORMATION: INCONCLUSIVE MAMMOGRAM COMPARISON: None. FINDINGS: Ultrasound RIGHT breast at the nipple 12:00 position. Hypoechoic slightly irregular lesion with some through transmission. This lesion is taller than wide. This may be partially cystic but is indetermin ant and recommend further evaluation with ultrasound-guided biopsy. No internal vascularity MM/[place] [id number] IMPRESSION: BI-RADS: 4-Suspicious Finding-Biopsy Should Be Considered FOLLOW UP: US Guided Biopsy Recommended Recommend ultrasound-guided biopsy RIGHT breast lesion.
== END 2022-02-14 10:38 | disposition home or self-care (01) ==
LOC: RADSHAW 10:39
PROVIDERS: PCP Family Medicine; Visit Provider Family Medicine
DX: R92.2 Inconclusive mammogram (principal); N63.15 Unspecified lump in the right breast, overlapping quadrants
CPT/HCPCS: 76642; 77061

== ENCOUNTER → 2022-03-08 09:13 | Outpatient (BNVA) | payer MEDICARE, BC, SELFPAY | PROVIDERS: PCP Family Medicine; Visit Provider Anesthesiology Pain Medicine | DX: M51.36 Other intervertebral disc degeneration, lumbar region (principal); M48.062 Spinal stenosis, lumbar region with neurogenic claudication; M47.816 Spondylosis without myelopathy or radiculopathy, lumbar region; M54.17 Radiculopathy, lumbosacral region; M25.551 Pain in right hip; Z79.891 Long term (current) use of opiate analgesic | CPT/HCPCS: 99214 ==

== ENCOUNTER 2022-03-14 08:36 | Outpatient (CLI) | payer MEDICARE, BC, SELFPAY ==
--- NOTE | 2022-03-14 08:44 | US_ITS ---
WS: [id number] ULTRASOUND-GUIDED RIGHT BREAST BIOPSY HISTORY: RIGHT BREAST MASS COMPARISON: 02/14/2021 and 01/26/2022 Procedure, risks and complications are explained to the patient. Medications are reviewed. Consent is obtained. The mass in the RIGHT breast is localized with ultrasound. Mass localizes to 12:00 at the nipple. Ski n is cleansed with ChloraPrep and anesthetized with 1% buffered lidocaine. Small dermatome is made. U nder sterile conditions mass is biopsied with a 14-gauge Achieve needle. After the initial biopsy the complex mass completely resolved consistent with a complex cyst. Material placed in formalin and sen t to pathology for review. No complications encountered. Breast tissue marker (Bard ultrasound enhanced ribbon): None. Patient left the radiology suite with no complications. Patient is instructed to return to [facility] or [facility] with any concerns. US/[place] [id number] IMPRESSION: 1. Uncomplicated core needle biopsy RIGHT breast mass at 12:00. Mass completel y collapsed after the first initial biopsy suggesting benignity. PATHOLOGY: Benign breast tissue with fibrocystic changes. No malignancy identif ied. RECOMMENDATION: Diagnostic RIGHT mammogram follow-up 6 months. Ultrasound may b e necessary also.
== END 2022-03-14 08:37 | disposition home or self-care (01) ==
LOC: RAD 08:38
PROVIDERS: PCP Family Medicine; Visit Provider Family Medicine
DX: N60.11 Diffuse cystic mastopathy of right breast (principal); N63.10 Unspecified lump in the right breast, unspecified quadrant
CPT/HCPCS: 19083; 88305

== ENCOUNTER → 2022-03-16 13:50 | Outpatient (BNVA) | payer MEDICARE, BC, SELFPAY | PROVIDERS: PCP Family Medicine; Visit Provider Anesthesiology Pain Medicine | DX: M54.16 Radiculopathy, lumbar region (principal); M48.062 Spinal stenosis, lumbar region with neurogenic claudication; Z79.891 Long term (current) use of opiate analgesic | CPT/HCPCS: 64483; 64484; J1100; J3490 ==

== ENCOUNTER → 2022-03-30 10:02 | Outpatient (BNVA) | payer MEDICARE, BC, SELFPAY | PROVIDERS: PCP Family Medicine; Visit Provider Anesthesiology Pain Medicine | DX: M51.36 Other intervertebral disc degeneration, lumbar region (principal); M48.062 Spinal stenosis, lumbar region with neurogenic claudication; M47.816 Spondylosis without myelopathy or radiculopathy, lumbar region; M54.17 Radiculopathy, lumbosacral region; M25.551 Pain in right hip; G20 Parkinson's disease; Z79.891 Long term (current) use of opiate analgesic | CPT/HCPCS: 99214 ==

== ENCOUNTER → 2022-05-26 09:54 | Outpatient (BNVA) | payer MEDICARE, BC, SELFPAY | PROVIDERS: PCP Family Medicine; Visit Provider Anesthesiology Pain Medicine | DX: M48.062 Spinal stenosis, lumbar region with neurogenic claudication (principal); M51.36 Other intervertebral disc degeneration, lumbar region; M47.816 Spondylosis without myelopathy or radiculopathy, lumbar region; M54.17 Radiculopathy, lumbosacral region; G20 Parkinson's disease; M16.0 Bilateral primary osteoarthritis of hip; Z79.891 Long term (current) use of opiate analgesic | CPT/HCPCS: 99213 ==

== ENCOUNTER → 2022-07-21 10:02 | Outpatient (BNVA) | payer MEDICARE, BC, SELFPAY | PROVIDERS: PCP Family Medicine; Visit Provider Anesthesiology Pain Medicine | DX: M48.062 Spinal stenosis, lumbar region with neurogenic claudication (principal); M51.36 Other intervertebral disc degeneration, lumbar region; M47.816 Spondylosis without myelopathy or radiculopathy, lumbar region; M54.17 Radiculopathy, lumbosacral region; M16.0 Bilateral primary osteoarthritis of hip; M79.604 Pain in right leg; M79.605 Pain in left leg | CPT/HCPCS: 99214 ==

== ENCOUNTER 2022-10-27 08:29 | Outpatient (CLI) | payer MEDICARE, BC, SELFPAY ==
--- NOTE | 2022-10-27 09:05 | MM_ITS ---
WS: [id number] DIAGNOSTIC RIGHT DIGITAL TOMOSYNTHESIS MAMMOGRAPHY WITH CAD. HISTORY: BX 6M FOLLOW UP, benign biopsy. COMPARISON: 02/14/2022, 01/26/2022 Technique: CC, MLO and ML views. Spot views CC and MLO. Breast composition: There are scattered areas of fibroglandular density. No suspicious masses. Previ ously described nodule in the central RIGHT breast has resolved. No suspicious calcifications or dist ortion. MM/[place] [id number] IMPRESSION: BI-RADS: 2-Benign FOLLOW UP: 6 Month Follow-up Return to annual screening mammography. Screening mammography should be schedul ed for January 2023.
== END 2022-10-27 08:30 | disposition home or self-care (01) ==
LOC: RAD 08:29
PROVIDERS: PCP Family Medicine; Visit Provider Family Medicine
DX: M51.36 Other intervertebral disc degeneration, lumbar region (principal); M48.062 Spinal stenosis, lumbar region with neurogenic claudication; M47.816 Spondylosis without myelopathy or radiculopathy, lumbar region; M54.17 Radiculopathy, lumbosacral region; M25.551 Pain in right hip; M79.604 Pain in right leg; M79.605 Pain in left leg; R92.8 Other abnormal and inconclusive findings on diagnostic imaging of breast
CPT/HCPCS: 77061; 99213; G0279

== ENCOUNTER → 2023-01-30 10:45 | Outpatient (BNVA) | payer MEDICARE, BC, SELFPAY | PROVIDERS: PCP Family Medicine; Visit Provider Anesthesiology Pain Medicine | DX: M51.36 Other intervertebral disc degeneration, lumbar region (principal); M48.062 Spinal stenosis, lumbar region with neurogenic claudication; M47.816 Spondylosis without myelopathy or radiculopathy, lumbar region; M54.17 Radiculopathy, lumbosacral region; M16.0 Bilateral primary osteoarthritis of hip | CPT/HCPCS: 99214 ==

== ENCOUNTER 2023-02-08 09:10 | Outpatient (CLI) | payer MEDICARE, BC, SELFPAY ==
--- NOTE | 2023-02-08 09:30 | MM_ITS ---
WS: [id number] BILATERAL SCREENING DIGITAL TOMOSYNTHESIS MAMMOGRAM WITH CAD HISTORY: SCREENING COMPARISON: 02/14/2022 and 01/26/2022 Bilateral CC and MLO views with tomosynthesis and synthetic mammography submitted. Computer aided det ection analyzed. Breast composition: There are scattered areas of fibroglandular density. No suspicious masses, microc alcifications or architectural distortion. MM/[place] [id number] IMPRESSION: BI-RADS: 1-Negative FOLLOW UP: 1 Year Follow-up
== END 2023-02-08 09:11 | disposition home or self-care (01) ==
LOC: RAD 09:18
PROVIDERS: PCP Family Medicine; Visit Provider Family Medicine
DX: Z12.31 Encounter for screening mammogram for malignant neoplasm of breast (principal)
CPT/HCPCS: 77063; 77067

== ENCOUNTER 2023-02-22 13:16 | Outpatient (CLI) | payer MEDICARE, BC, SELFPAY ==
--- NOTE | 2023-02-22 13:30 | XR_ITS ---
WS: [id number] DEXA (DUAL ENERGY X-RAY ABSORPTIOMETRY) Bone mineral density was performed using a [employer] machine. HISTORY: OSTEOPOROSIS COMPARISON: 02/20/2015 Lumbar spine BMD (L1-L4): 1.127 g/cm2 T score: -0.4 Z score: 0.9 Total hip BMD: Left: 0.848 g/cm2. T score: -1.3 Z score: 0.3 Right: 0.867 g/cm2. T score: -1.1 Z score: 0.5 10 year probability of a major osteoporotic fracture is 30.0%. Compared to the prior study from 01/23/2015. Lumbar spine bone mineral density has decreased by 9.8%. Bilateral hips bone mineral density has decreased by 8.8%. XR/XR DEXA axial skeleton* [id number] IMPRESSION: OSTEOPENIA based upon the WHO classification for females. Significant decrease in bone mineral density within the lumbar spine and hips s cherie the prior study.
== END 2023-02-22 13:17 | disposition home or self-care (01) ==
LOC: RAD 13:22
PROVIDERS: PCP Family Medicine; Visit Provider Family Medicine
DX: M81.0 Age-related osteoporosis without current pathological fracture (principal); M85.80 Other specified disorders of bone density and structure, unspecified site
CPT/HCPCS: 77080

== ENCOUNTER → 2023-05-01 09:54 | Outpatient (BNVA) | payer MEDICARE, BC, SELFPAY | PROVIDERS: PCP Family Medicine; Visit Provider Anesthesiology Pain Medicine | DX: M51.36 Other intervertebral disc degeneration, lumbar region (principal); M48.062 Spinal stenosis, lumbar region with neurogenic claudication; M47.816 Spondylosis without myelopathy or radiculopathy, lumbar region; M54.17 Radiculopathy, lumbosacral region; M16.0 Bilateral primary osteoarthritis of hip | CPT/HCPCS: 99214 ==

== ENCOUNTER → 2023-05-24 13:54 | Outpatient (BNVA) | payer MEDICARE, BC, SELFPAY | PROVIDERS: PCP Family Medicine; Visit Provider Surgery | DX: R10.13 Epigastric pain (principal); R63.4 Abnormal weight loss | CPT/HCPCS: 99203 ==

== ENCOUNTER 2023-05-29 06:00 | Outpatient (RCR) | payer MEDICARE, BC, SELFPAY | END 2023-06-26 23:59 | disposition home or self-care (01) | LOC: APT 06:00 | PROVIDERS: PCP Family Medicine; Visit Provider Family Medicine | DX: M54.50 Low back pain, unspecified (principal) | CPT/HCPCS: 97110; 97112; 97163; 97530 ==

== ENCOUNTER 2023-06-08 08:17 | Outpatient (CLI) | payer MEDICARE, BC, SELFPAY ==
--- NOTE | 2023-06-08 08:30 | US_ITS ---
WS: [id number] ULTRASOUND ABDOMEN LIMITED CLINICAL INFORMATION: abdominal pain COMPARISON: None. FINDINGS: Liver Size: Normal. Craniocaudal length: 13.2 cm. Echogenicity: Normal. Surface nodularity: None. Mass (size and location): None. Bile ducts Intrahepatic ducts: Normal. Common bile duct diameter: 0.6 cm. Gallbladder Dense shadowing cholelithiasis. Suspected calculi extending into the cystic duct. Recommend MRCP for further evaluation. Gallstones: Present Gallbladder sludge: None. Gallbladder wall thickening: None. Pericholecystic fluid: None. Sonographic Shell sign: Absent. Pancreas Normal as visualized. Right kidney: Simple cysts RIGHT kidney largest measuring 2.9 x 2.5 cm Hydronephrosis: None. Size: 10.4 cm x 4.8 cm x 4.5 cm. Abdominal aorta and IVC Visualized portions are normal. Ascites: None. US/US gall bladder [id number] IMPRESSION: 1. Cholelithiasis. Calculi extending into the cystic duct. Recommend MRCP for further evaluation. 2. No gallbladder wall thickening or pericholecystic fluid. 3. Common bile duct measuring 6.2 mm. 4. Simple cysts RIGHT kidney largest measuring 2.9 x 2.5 cm
== END 2023-06-08 08:18 | disposition home or self-care (01) ==
LOC: RAD 08:19
PROVIDERS: PCP Family Medicine; Visit Provider Surgery
DX: R10.9 Unspecified abdominal pain (principal); K80.20 Calculus of gallbladder without cholecystitis without obstruction; N28.1 Cyst of kidney, acquired
CPT/HCPCS: 76705

== ENCOUNTER 2023-06-21 07:40 | Day surgery (SDC) | payer MEDICARE, BC, SELFPAY ==
[2023-06-20 10:44] VITALS: BMI 22.9
[2023-06-21 07:55] VITALS: BP 116/70; PULSE 87; RESP 18; TEMP 36.7; O2SAT 96
--- NOTE | 2023-06-21 08:01 | P.ANESASSM_ITS ---
Pre-Anesthetic Assessment Height/Weight: Height 1.73 m Weight 68.492 kg Temp Pulse Resp BP Pulse Ox O2 Del Method 98.0 F 87 18 116/70 96 Room Air 06/21/23 07:55 06/21/23 07:55 06/21/23 07:55 06/21/23 07:55 06/21/23 07:55 06/21/23 07:55 Operation Date: 06/21/23 08:45 Proposed Procedures p [id number] egd [id number] colon Z12.11, K21.9,R10.9, K92.1(Not Applicable) - DO nakita Ramon Colonoscopy(Not Applicable) - Keshav Walker DO Familial anesthetic complications: none Was Beta Joselin taken within 24 hours: N/A Was Clonidine taken within 24 hours: N/A Last intake: Intake Last Liquid Date 06/20/23 Last Liquid Time 22:00 Last Solid Date 06/19/23 Last Solid Time 17:00 Social No alcohol and No tobacco Exam alert, oriented x 3, clear to auscultation bilaterally and regular rate & rhythm Airway Mallampati: Class II Dentition: full Pulmonary None reported CV/HEM None reported GI Gastroesophageal Reflux Disease Neuropsych parkinson's disease Anesthetic Plan ASA status: 3 Anesthesia: MAC Risk of > 500 ml blood loss (7ml/kg in children): No Medications/Allergies Home Medications Medication Instructions Recorded Confirmed Last Taken Type dexamethasone 0.1 % eye 1 drop ophthalmic (eye) DAILY 01/13/20 06/20/23 06/20/23 History drops,suspension magnesium 250 mg tablet 500 mg PO BID 01/13/20 06/20/23 06/20/23 History multivitamin 1 cap PO DAILY 01/13/20 06/20/23 06/20/23 History acetaminophen 500 mg tablet 1,000 mg PO BID PRN Pain 05/14/20 06/20/23 06/20/23 History (Tylenol Extra Strength) calcium carbonate 500 mg calcium 500 mg PO DAILY 05/14/20 06/20/23 06/20/23 History (1,250 mg) capsule Vitamin D3 1 tab PO DAILY 08/11/20 06/20/23 06/20/23 History carbidopa ER 50 mg-levodopa 200 mg 1 tab PO QID 03/08/22 06/20/23 06/21/23 History tablet,extended release omega-3 fatty acids 500 mg capsule 500 mg PO DAILY 07/21/22 06/20/23 06/20/23 History pantoprazole 40 mg tablet,delayed 40 mg PO BID 6 weeks #84 tabs 05/24/23 06/20/23 06/20/23 Rx release (Protonix) tramadol 50 mg tablet 50 mg PO DAILY PRN pain 05/25/23 06/20/23 06/21/23 History Allergies Allergy/AdvReac Type Severity Reaction Status Date / Time lidocaine Allergy JITTERY Verified 06/21/23 07:55 nickel Allergy rash Verified 06/21/23 07:55 Sulfa (Sulfonamide Allergy dizzy Verified 06/21/23 07:55 Antibiotics) [facility] Anesthesia Medical History (Updated 05/24/23 @ 14:57 by Keshav Walker DO) FH: Parkinson's disease Surgical History (Updated 05/24/23 @ 14:57 by Keshav Walker DO) History of arthroplasty of left knee Hx of colonoscopy 5-10 yrs ago Family History Denies family history of Diabetes CAD (coronary artery disease) Cancer Hypertension Stroke Social History Smoking and tobacco status: never smoked Second hand smoke exposure: No Alcohol intake: never Substance/Drug Use: never Lives independently: Yes Data Anesthesia Cardiac Studies: No Data to Display
[2023-06-21] MEDS: sodium chloride 0.9% 1,000 ML 30 ML IV (08:06)
--- NOTE | 2023-06-21 09:37 | W.PM.OPSUD ---
Surgery/Procedure H&P Update DATE OF PROCEDURE: June 21, 2023 DATE H&P PERFORMED: 05/24/23 H&P UPDATE INFORMATION: I have reviewed H&P completed within last 30 days, I have examined patient prior to procedure and No changes to prior documentation PLANNED PROCEDURE: Operation Date: 06/21/23 08:45 Proposed Procedures p [id number] egd [id number] colon Z12.11, K21.9,R10.9, K92.1(Not Applicable) - DO nakita Ramon Colonoscopy(Not Applicable) - Keshav Walker DO
[2023-06-21 10:10] VITALS: BP 137/68; PULSE 67; RESP 18; TEMP 36.3; O2SAT 95
[2023-06-21 10:19] VITALS: BP 146/85; PULSE 70; RESP 18; O2SAT 97
--- NOTE | 2023-06-21 10:30 | ANE.PACU2 ---
Inpatient post-anesthesia follow up: Airway intact: Yes Vital signs: Temperature 97.3 F Pulse Rate 70 Respiratory Rate 18 Blood Pressure 146/85 Pulse Oximetry 97 Oxygen Delivery Me thod Room Air Oxygen Flow Rate Fraction of Inspir ed Oxygen Hydration adequate: Yes Nausea and vomiting: Yes Pain level: 1 Mental status: Baseline
== END 2023-06-21 10:46 | disposition home or self-care (01) ==
PROVIDERS: PCP Family Medicine; Visit Provider Surgery
PROC: 0DJ08ZZ Inspection of Upper Intestinal Tract, Via Natural or Artificial Opening Endoscopic (ICD-10-PCS; CPT 43235; principal; 2023-06-21 08:45)
PROC: 0DJD8ZZ Inspection of Lower Intestinal Tract, Via Natural or Artificial Opening Endoscopic (ICD-10-PCS; CPT 45378; 2023-06-21 08:45)
DX: K92.1 Melena (principal); R10.9 Unspecified abdominal pain; K21.9 Gastro-esophageal reflux disease without esophagitis; K29.50 Unspecified chronic gastritis without bleeding; B96.81 Helicobacter pylori [H. pylori] as the cause of diseases classified elsewhere; K29.80 Duodenitis without bleeding; K22.2 Esophageal obstruction
CPT/HCPCS: 43239; 43249; 45378; 88305; J2704; J7030

== ENCOUNTER 2023-06-27 06:00 | Outpatient (RCR) | payer MEDICARE, BC, SELFPAY | END 2023-07-27 23:59 | disposition home or self-care (01) | LOC: APT 06:00 | PROVIDERS: PCP Family Medicine; Visit Provider Family Medicine | DX: M54.50 Low back pain, unspecified (principal) | CPT/HCPCS: 97110; 97530 ==

== ENCOUNTER 2023-07-04 14:12 | Outpatient (RCR) | payer MEDICARE, BC, SELFPAY | END 2023-07-27 23:59 | disposition home or self-care (01) | LOC: SPT 14:12 | PROVIDERS: PCP Family Medicine; Visit Provider Family Medicine | DX: N94.89 Other specified conditions associated with female genital organs and menstrual cycle (principal) | CPT/HCPCS: 97110; 97161; 97530 ==

== ENCOUNTER → 2023-07-18 16:30 | Outpatient (BNVA) | payer MEDICARE, BC, SELFPAY | PROVIDERS: PCP Family Medicine; Visit Provider Surgery | DX: K29.70 Gastritis, unspecified, without bleeding; B96.81 Helicobacter pylori [H. pylori] as the cause of diseases classified elsewhere; K80.20 Calculus of gallbladder without cholecystitis without obstruction; K22.2 Esophageal obstruction | CPT/HCPCS: 99212 ==

== ENCOUNTER 2023-07-28 06:00 | Outpatient (RCR) | payer MEDICARE, BC, SELFPAY | END 2023-08-26 23:59 | disposition home or self-care (01) | LOC: SPT 06:00 | PROVIDERS: PCP Family Medicine; Visit Provider Family Medicine | DX: N94.89 Other specified conditions associated with female genital organs and menstrual cycle (principal) | CPT/HCPCS: 97110; 97530 ==

== ENCOUNTER → 2023-08-01 10:09 | Outpatient (BNVA) | payer MEDICARE, BC, SELFPAY | PROVIDERS: PCP Family Medicine; Visit Provider Anesthesiology Pain Medicine | DX: M47.816 Spondylosis without myelopathy or radiculopathy, lumbar region (principal); M51.36 Other intervertebral disc degeneration, lumbar region; M48.062 Spinal stenosis, lumbar region with neurogenic claudication; M54.17 Radiculopathy, lumbosacral region; M25.551 Pain in right hip | CPT/HCPCS: 99213 ==

== ENCOUNTER 2023-08-10 11:01 | Day surgery (SDC) | payer MEDICARE, BC, SELFPAY ==
[2023-08-09 09:37] VITALS: BMI 22.8
[2023-08-10] VITALS (16 sets, daily range): BP systolic 92–164; BP diastolic 67–90; PULSE 56–83; RESP 16–26; TEMP 36.1–36.7; O2SAT 92–100
--- NOTE | 2023-08-10 11:28 | W.PM.OPSUD ---
Surgery/Procedure H&P Update DATE OF PROCEDURE: August 10, 2023 DATE H&P PERFORMED: 07/18/23 H&P UPDATE INFORMATION: I have reviewed H&P completed within last 30 days, I have examined patient prior to procedure and No changes to prior documentation PLANNED PROCEDURE: Operation Date: 08/10/23 12:30 Proposed Procedures p : [id number] nito de la torre w/IOC K80.20(Not Applicable) - Keshav Walker DO
[2023-08-10] MEDS: sodium chloride 0.9% 1,000 ML 30 ML IV (11:29)
--- NOTE | 2023-08-10 11:49 | SC_ITS ---
WS: [id number] Exam: C-arm FL for ALEC [id number] Date/Time of Exam: 08/10/2023 11:49 AM Reason For Exam: intraop Single anterior posterior C-arm image of the RIGHT abdomen is submitted. The images and OR cholangiog kina. There is opacification of the mid and distal common bile duct with spillage of contrast into the duod enal C-loop. There is a probable filling defect and sharp cut off involving the proximal common bile duct with hardly any contrast extending cephalad in the region of the common hepatic or intrahepatic ducts. The possibility of obstructing stones or neoplasm in the upper common bile duct is not exclude d. An MRCP or conventional ERCP might be considered for definitive evaluation. IMPRESSION: 1. Abnormal or cholangiogram with possible obstructing stone or neoplasm in the region of the proxima l common bile duct.
--- NOTE | 2023-08-10 11:53 | PC.NURSE ---
Discussed patient's allergy to lidocaine with Dr. Walker. Dr. Walker ordered 0.25% bupivicaine to be used during the case instead.
--- NOTE | 2023-08-10 11:57 | ANES.PREANE2 ---
Pre-Anesthetic Assessment Height/Weight: Height 1.73 m Weight 68.039 kg Temp Pulse Resp BP Pulse Ox O2 Del Method 98 F 82 16 118/73 99 Room Air 08/10/23 11:08/10/23 11:08/10/23 11:09 08/10/23 11:09 08/10/23 11:09 08/10/23 11:37 Operation Date: 08/10/23 12:30 Proposed Procedures p : [id number] lap britt w/IOC K80.20(Not Applicable) - Keshav Walker DO Familial anesthetic complications: none Was Beta Joselin taken within 24 hours: N/A Was Clonidine taken within 24 hours: N/A Last intake: Intake Last Liquid Date 08/09/23 Last Liquid Time 21:00 Last Solid Date 08/09/23 Last Solid Time 17:00 Social No alcohol and No tobacco Exam alert, oriented x 3, clear to auscultation bilaterally and regular rate & rhythm Airway Submandibular: within normal limits Cervical ROM: within normal limits Mallampati: Class II Dentition: full GI Gastroesophageal Reflux Disease Musc/skel Lower Back Pain and Osteoarthritis/DJD Neuropsych Parkinson's tremor Anesthetic Plan ASA status: 3 Anesthesia: General Medications/Allergies Home Medications Medication Instructions Recorded Confirmed Last Taken Type dexamethasone 0.1 % eye 1 drop ophthalmic (eye) DAILY 01/13/20 08/09/23 08/09/23 History drops,suspension magnesium 250 mg tablet 500 mg PO BID 01/13/20 08/09/23 08/03/23 History multivitamin 1 cap PO DAILY 01/13/20 08/10/23 08/03/23 History acetaminophen 500 mg tablet 1,000 mg PO BID PRN Pain 05/14/20 08/09/23 08/08/23 History (Tylenol Extra Strength) calcium carbonate 500 mg calcium 500 mg PO DAILY 05/14/20 08/09/23 08/03/23 History (1,250 mg) capsule Vitamin D3 1 tab PO DAILY 08/11/20 08/01/23 08/03/23 History carbidopa ER 50 mg-levodopa 200 mg 1 tab PO QID 03/08/22 08/09/23 08/10/23 History tablet,extended release omega-3 fatty acids 500 mg capsule 500 mg PO DAILY 07/21/22 08/10/23 08/03/23 History pantoprazole 40 mg tablet,delayed 40 mg PO BID 6 weeks #84 tabs 07/18/23 08/09/23 08/10/23 Rx release (Protonix) tramadol 50 mg tablet 50 mg PO TID PRN pain #90 tabs 08/01/23 08/09/23 08/09/23 Rx Allergies Allergy/AdvReac Type Severity Reaction Status Date / Time lidocaine Allergy JITTERY Verified 08/10/23 11:16 nickel Allergy rash Verified 08/10/23 11:16 Sulfa (Sulfonamide Allergy dizzy Verified 08/10/23 11:16 Antibiotics) Current Medications Generic Name Dose Route Start Last Admin Trade Name Freq PRN Reason Stop Dose Admin Sodium Chloride 1,000 mls @ 30 mls/hr 08/10/23 11:15 08/10/23 11:29 Sodium Chloride 0.9% IV 08/11/23 11:14 30 mls/hr .Q24H SINDY Administration PFSH Anesthesia Medical History FH: Parkinson's disease Surgical History History of arthroplasty of left knee Hx of colonoscopy 5-10 yrs ago Family History Denies family history of Diabetes CAD (coronary artery disease) Cancer Hypertension Stroke Social History Smoking and tobacco status: never smoked Second hand smoke exposure: No Alcohol intake: never Substance/Drug Use: never Lives independently: Yes Data Anesthesia Cardiac Studies: No Data to Display
[2023-08-10] MEDS: ceFAZolin 2,000 MG in sodium chloride 0.9% (plus) 50 ML 100 MG IV (12:04)
[2023-08-10] MEDS: iohexol 300 mg/mL 50 mL Btl (OR ONLY) XX (12:30)
[2023-08-10] MEDS: BUPivacaine 0.25% INJ 30 mL INJECTION (12:31)
--- NOTE | 2023-08-10 12:45 | P.OP_ITS ---
Operative Report Date of procedure: August 10, 2023 Pre-op diagnosis: Symptomatic cholelithiasis Post-op diagnosis: same Procedure done: Laparoscopic cholecystectomy with intraoperative cholangiogram Implants: None Specimens removed/disposition: Gallbladder Surgeon: Keshav Walker DO Anesthesia: General Estimated blood loss (mL): 5 Complications: None apparent Brief History: This very pleasant 77-year-old female who was diagnosed with symptomatic cholelithiasis. Ultrasound showed a stone in the cystic duct. Laparoscopic cholecystectomy with intraoperative cholangiogram was indicated. The risk benefits were explained and documented. Procedure: Patient was wheeled into the operative room and placed on the OR table in a supine position. Abdomen was inspected prepped and draped in usual sterile fashion. Time-out was performed and all present were in agreement. A 15 blade scalp was used to make a stab incision in the left upper quadrant and intra- abdominal insufflation was achieved using a Veress needle. After localizing the tissue incisions were made and a 5 millimeter trocar was placed into the umbilicus as well as 2 in the right upper quadrant. A 12 millimeter trocar was placed in the epigastrium. Gallbladder was grasped and elevated. The triangle of Calot was carefully dissected using blunt dissection and electrocautery until the triangle of Calot clearly identified. The cystic duct was clipped proximally and partially transected just distal to this. A cholangiocatheter was then placed into the cystic duct and clipped into place. A cholangiogram was performed and no filling defect was seen in the common bile duct. The chol angiocatheter was then removed and the cystic duct was double clipped distally. The duct was then ligated proximally. The cystic artery was doubly clipped and ligated. The gallbladder was then removed from the liver bed using electrocautery. The gallbladder was removed from the abdomen using an Endo- Catch bag through the epigastric incision. The liver bed was inspected and no bleeding was seen. The abdomen was irrigated and suctioned. All ports removed. Skin was washed and dried. Incisions were closed with 4-0 Monocryl in a subcuticular interrupted fashion. Skin glue was applied. Patient tolerated the procedure well.
[2023-08-10] MEDS: fentaNYL 50 mcg/mL INJ 2mL IVP ×2 (13:20→13:33)
[2023-08-10] MEDS: acetaminophen 1,000 MG/100 ML PIGGYBACK 400 MG IV (13:45)
--- NOTE | 2023-08-10 14:03 | ANE.PACU2 ---
Inpatient post-anesthesia follow up: Airway intact: Yes Vital signs: Temperature 98.1 F Pulse Rate 62 Respiratory Rate 26 Blood Pressure 164/80 Pulse Oximetry 100 Oxygen Delivery Me thod Room Air Oxygen Flow Rate Fraction of Inspir ed Oxygen Hydration adequate: Yes Nausea and vomiting: No Pain level: 3 Mental status: Baseline
[2023-08-10] MEDS: HYDROcodone-acetaminophen 10-325 mg Tablet 1 TAB PO (14:15)
== END 2023-08-10 14:50 | disposition home or self-care (01) ==
PROVIDERS: PCP Family Medicine; Visit Provider Surgery
PROC: 0FT44ZZ Resection of Gallbladder, Percutaneous Endoscopic Approach (ICD-10-PCS; CPT 47562; principal; 2023-08-10 12:30)
DX: K80.10 Calculus of gallbladder with chronic cholecystitis without obstruction (principal); K21.9 Gastro-esophageal reflux disease without esophagitis
CPT/HCPCS: 47562; 76000; 77001; 88304; J0131; J0690; J1100; J2405; J2704; J2710; J3010; J3490; J7030

== ENCOUNTER → 2023-08-23 14:23 | Outpatient (BNVA) | payer MEDICARE, BC, SELFPAY | PROVIDERS: PCP Family Medicine; Visit Provider Surgery | DX: Z90.49 Acquired absence of other specified parts of digestive tract (principal); R10.9 Unspecified abdominal pain; Z98.890 Other specified postprocedural states | CPT/HCPCS: 99024 ==

== ENCOUNTER 2023-08-27 06:00 | Outpatient (RCR) | payer MEDICARE, BC, SELFPAY | END 2023-08-31 23:59 | disposition home or self-care (01) | LOC: SPT 06:00 | PROVIDERS: PCP Family Medicine; Visit Provider Family Medicine | DX: N94.89 Other specified conditions associated with female genital organs and menstrual cycle (principal) | CPT/HCPCS: 97110 ==

== ENCOUNTER → 2023-11-13 09:15 | Outpatient (BNVA) | payer MEDICARE, BC, SELFPAY | PROVIDERS: PCP Family Medicine; Visit Provider Anesthesiology Pain Medicine | DX: M47.816 Spondylosis without myelopathy or radiculopathy, lumbar region (principal); M51.36 Other intervertebral disc degeneration, lumbar region; M48.062 Spinal stenosis, lumbar region with neurogenic claudication; M54.17 Radiculopathy, lumbosacral region; M16.0 Bilateral primary osteoarthritis of hip | CPT/HCPCS: 99214 ==

== ENCOUNTER → 2023-12-27 14:08 | Outpatient (BNVA) | payer MEDICARE, BC, SELFPAY | PROVIDERS: PCP Family Medicine; Visit Provider Surgery | DX: K29.70 Gastritis, unspecified, without bleeding (principal); B96.81 Helicobacter pylori [H. pylori] as the cause of diseases classified elsewhere; Z86.19 Personal history of other infectious and parasitic diseases; R10.9 Unspecified abdominal pain; K59.00 Constipation, unspecified | CPT/HCPCS: 99214 ==

== ENCOUNTER → 2023-12-28 12:23 | Outpatient (BNVA) | payer MEDICARE, BC, SELFPAY | PROVIDERS: PCP Family Medicine; Visit Provider Surgery | DX: K29.70 Gastritis, unspecified, without bleeding (principal); B96.81 Helicobacter pylori [H. pylori] as the cause of diseases classified elsewhere; Z86.19 Personal history of other infectious and parasitic diseases | CPT/HCPCS: 87338 ==

== ENCOUNTER → 2024-01-11 16:06 | Outpatient (BNVA) | payer MEDICARE, BC, SELFPAY | PROVIDERS: PCP Family Medicine; Visit Provider Surgery | DX: K21.9 Gastro-esophageal reflux disease without esophagitis (principal); Z86.19 Personal history of other infectious and parasitic diseases; K59.00 Constipation, unspecified | CPT/HCPCS: 99212 ==

== ENCOUNTER 2024-02-14 11:19 | Outpatient (CLI) | payer MEDICARE, BC, SELFPAY ==
--- NOTE | 2024-02-14 11:25 | MM_ITS ---
WS: [id number] BILATERAL 3D TOMOSYNTHESIS DIGITAL SCREENING MAMMOGRAPHY WITH CAD CLINICAL INFORMATION: SCREENING HISTORY: Screening mammogram. No current complaints. COMPARISON: 2022 TECHNIQUE: Bilateral CC and MLO views. FINDINGS: Scattered fibroglandular densities bilaterally. No suspicious focal mass, asymmetry, calcifications, or architectural distortion. No evidence of malignancy. IMPRESSION: MM/[place] [id number] BI-RADS: 1-Negative FOLLOW UP: 1 Year Follow-up Recommend return to annual screening mammography.
== END 2024-02-14 11:20 | disposition home or self-care (01) ==
LOC: RAD 11:21
PROVIDERS: PCP Family Medicine; Visit Provider Family Medicine
DX: Z12.31 Encounter for screening mammogram for malignant neoplasm of breast (principal)
CPT/HCPCS: 77063; 77067

== ENCOUNTER → 2024-04-23 13:52 | Outpatient (BNVA) | payer MEDICARE, BC, SELFPAY | PROVIDERS: PCP Family Medicine; Visit Provider Podiatrist Foot & Ankle Surgery | DX: M79.672 Pain in left foot (principal); L84 Corns and callosities | CPT/HCPCS: 99203 ==

== ENCOUNTER → 2024-05-14 09:42 | Outpatient (BNVA) | payer MEDICARE, BC, SELFPAY | PROVIDERS: PCP Family Medicine; Visit Provider Anesthesiology Pain Medicine | DX: M47.816 Spondylosis without myelopathy or radiculopathy, lumbar region (principal); M51.36 Other intervertebral disc degeneration, lumbar region; M48.062 Spinal stenosis, lumbar region with neurogenic claudication; M54.17 Radiculopathy, lumbosacral region; M16.0 Bilateral primary osteoarthritis of hip | CPT/HCPCS: 99214 ==

== ENCOUNTER → 2024-06-25 13:09 | Outpatient (BNVA) | payer MEDICARE, BC, SELFPAY | PROVIDERS: PCP Family Medicine; Visit Provider Podiatrist Foot & Ankle Surgery | DX: L84 Corns and callosities | CPT/HCPCS: 99213 ==

== ENCOUNTER 2024-08-16 08:27 | Outpatient (CLI) | payer MEDICARE, BC, SELFPAY ==
--- NOTE | 2024-08-16 08:33 | CT_ITS ---
WS: [id number] CT CHEST, ABDOMEN AND PELVIS WITH CONTRAST HISTORY: ABNORMAL WEIGHT LOSS TECHNIQUE: Contiguous 5 mm axial imaging performed through the chest, abdomen and pelvis with IV cont rast, oral contrast has been provided. Coronal and sagittal reformats chest. Coronal and sagittal ref ormats through the abdomen and pelvis. All CT scans at [place] use at least one of these d ose optimization techniques: automated exposure control; mA and/or kV adjustment per patient size (in cludes targeted exams where dose is matched to clinical indication); or iterative reconstruction. CONTRAST: Omnipaque 350; 100 mL IV. DLP: 580.47 mGy.cm COMPARISON: None available. Chest CT: Mild pulmonary hyperinflation. No pulmonary mass or nodule. No pericardial or pleural effus ions. Heart size is normal. There are a few small mediastinal and hilar lymph nodes. Subcarinal lymph node is 12 mm. Small paratracheal and aortopulmonary nodes. No adenopathy. Normal size aorta. Negati ve pulmonary artery. No osteoblastic or osteolytic bone disease. Abdomen CT: Normal size liver. There is mild central bile duct dilatation. Common bile duct measures 10 mm. No mass in the distal common bile duct or calcification. Prior cholecystectomy. Normal spleen. Normal pancreas. LEFT adrenal adenoma measures 11 x 16 mm. Negative RIGHT adrenal gland. Bilateral r enal cystic masses. There are numerous masses present. No solid mass. The largest mass lower pole LEF T kidney measures 6.6 x 6.5 cm. There is slight dilatation of the central RIGHT renal pelvis but no m ass is identified. The distal ureter is normal size. Normal stomach. No small bowel obstruction. The appendix is not identified. There is mild diffuse con stipation. No obstructing mass identified. Pelvic CT: No free fluid or adenopathy. Atrophic uterus is present and anteverted. No osteoblastic or osteolytic bone disease. CT/CT chest abdpel w/*[id number] IMPRESSION: 1. No adenopathy in the chest, abdomen or pelvis. 2. Prior cholecystectomy with mild physiologic common bile duct dilatation. 3. Numerous bilateral renal cysts. No solid mass. 4. Constipation with no obstructing colon lesion. 5. No free air.
[2024-08-16 11:31] LABS: Blood Urea Nitrogen 18 mg/dL (8-23)
[2024-08-16] MEDS: iohexol 350 mg/mL 500 mL Btl (per mL) IV (11:31)
[2024-08-16] MEDS: iohexol 350 mg/mL 500 mL Btl (per mL) PO (11:32)
== END 2024-08-16 08:28 | disposition home or self-care (01) ==
LOC: RAD 08:27
PROVIDERS: Radiology Neuroradiology; Visit Provider Family Medicine
DX: Q61.02 Congenital multiple renal cysts (principal); R59.0 Localized enlarged lymph nodes; Z90.49 Acquired absence of other specified parts of digestive tract; D35.02 Benign neoplasm of left adrenal gland; N85.8 Other specified noninflammatory disorders of uterus; R63.4 Abnormal weight loss
CPT/HCPCS: 71260; 74177; 82565; 84520

== ENCOUNTER 2024-11-13 06:00 | Outpatient (RCR) | payer MEDICARE, BC, SELFPAY | END 2024-11-26 23:59 | disposition home or self-care (01) | LOC: APT 06:00 | PROVIDERS: Visit Provider Family Medicine | DX: G20.C Parkinsonism, unspecified (principal) | CPT/HCPCS: 97110; 97162; 97530 ==

== ENCOUNTER 2024-11-27 06:00 | Outpatient (RCR) | payer MEDICARE, BC, SELFPAY | END 2024-12-27 23:59 | disposition home or self-care (01) | LOC: APT 06:00 | PROVIDERS: Visit Provider Family Medicine | DX: G20.C Parkinsonism, unspecified (principal) | CPT/HCPCS: 97110; 97530 ==

== ENCOUNTER 2025-01-22 15:30 | Outpatient (RCR) | payer MEDICARE, BC, SELFPAY | END 2025-01-24 23:59 | disposition home or self-care (01) | LOC: APT 15:30 | PROVIDERS: Visit Provider Family Medicine | DX: G20.C Parkinsonism, unspecified (principal) | CPT/HCPCS: 97110; 97112; 97530 ==

== ENCOUNTER 2025-01-25 06:30 | Outpatient (RCR) | payer MEDICARE, BC, SELFPAY | END 2025-02-24 23:59 | disposition home or self-care (01) | LOC: APT 06:30 | PROVIDERS: Visit Provider Family Medicine | DX: G20.C Parkinsonism, unspecified (principal) | CPT/HCPCS: 97110; 97530 ==

== ENCOUNTER 2025-02-21 12:24 | Outpatient (CLI) | payer MEDICARE, BC, SELFPAY ==
--- NOTE | 2025-02-21 12:29 | MM_ITS ---
WS: [id number] BILATERAL 3D TOMOSYNTHESIS DIGITAL SCREENING MAMMOGRAPHY WITH CAD CLINICAL INFORMATION: SCREENING HISTORY: Screening mammogram. No current complaints. COMPARISON: 2023 TECHNIQUE: Bilateral CC and MLO views. FINDINGS: Scattered fibroglandular densities bilaterally. No suspicious focal mass, asymmetry, calcifications, or architectural distortion. No evidence of malignancy. MM/MM scr BI tomosynthesis [id number] IMPRESSION: DENSITY: There are scattered areas of fibroglandular density. BI-RADS: 1 - Negative. FOLLOW UP: 1 Year Follow-up Recommend return to annual screening mammography.
== END 2025-02-21 12:25 | disposition home or self-care (01) ==
PROVIDERS: PCP Family Medicine; Visit Provider Family Medicine
DX: Z12.31 Encounter for screening mammogram for malignant neoplasm of breast (principal); R92.323 Mammographic fibroglandular density, bilateral breasts
CPT/HCPCS: 77063; 77067

== ENCOUNTER 2025-02-25 05:00 | Outpatient (RCR) | payer MEDICARE, BC, SELFPAY | END 2025-03-26 23:59 | disposition home or self-care (01) | LOC: APT 05:00 | PROVIDERS: PCP Family Medicine; Visit Provider Family Medicine | DX: G20.C Parkinsonism, unspecified (principal) | CPT/HCPCS: 97110; 97530 ==

== ENCOUNTER 2025-06-02 08:23 | Outpatient (CLI) | payer MEDICARE, BC, SELFPAY ==
--- NOTE | 2025-06-02 08:36 | FL_ITS ---
WS: [id number] Exam: FL barium swallow [id number] Date/Time of Exam: 06/02/2025 8:42 AM Reason For Exam: DYSPHAGIA Fluoroscopy time: 2min [id number] minutes # of spot films: 7 Oral phase of swallowing was normal. There was some penetration of barium into the laryngeal inlet noted. There was no indication of esophageal stricture or mass. Moderate tertiary spasm of the lower esophagus was noted. No sign of gastroesophageal reflux. The esophagus is not displaced. FL/FL barium swallow [id number] IMPRESSION: 1. Oropharyngeal phase of swallowing demonstrated some mild penetration of joy um into the laryngeal inlet. No aspiration seen. 2. Moderate tertiary spasm of the lower esophagus. 3. No indication of esophageal mass, stricture or GE reflux.
== END 2025-06-02 08:24 | disposition home or self-care (01) ==
LOC: RAD 08:24
PROVIDERS: PCP Family Medicine; Visit Provider Otolaryngology
DX: R13.10 Dysphagia, unspecified (principal); K22.4 Dyskinesia of esophagus; R93.3 Abnormal findings on diagnostic imaging of other parts of digestive tract
CPT/HCPCS: 74220

== ENCOUNTER 2025-06-09 09:47 | Outpatient (CLI) | payer MEDICARE, BC, SELFPAY ==
--- NOTE | 2025-06-09 09:52 | FL_ITS ---
WS: [id number] FL barium swallow modifd [id number] REASON FOR EXAM: Other dysphagia FLUOROSCOPY TIME: 2min [id number] # OF SPOT FILMS: 0 TECHNIQUE: Examination was supervised by the speech therapy department. The patient was examined in the sitting upright lateral projection. The swallowing of barium of multiple consistencies was monitored fluoroscopically with video recording. FINDINGS: No penetration of contrast into the laryngeal vestibule. No aspiration. Incomplete clearing of the more solid oral intake from the valleculae. There is no impedance of the movement of the barium tablet through the thoracic esophagus and into the stomach. FL/FL barium swallow modifd [id number] IMPRESSION: No no aspiration or penetration demonstrated. Penetration of contrast into the laryngeal vestibule was demonstrated on the standard barium swallow examination of 06/02/2025. No impedance of the barium tablet through the esophageal esophagus. Detailed report of the swallowing will be rendered by the speech therapy depart ment.
== END 2025-06-09 09:48 | disposition home or self-care (01) ==
LOC: RAD 09:49
PROVIDERS: PCP Family Medicine; Visit Provider Otolaryngology
DX: R13.19 Other dysphagia (principal)
CPT/HCPCS: 74230; 92611

== ENCOUNTER → 2025-07-03 15:08 | Outpatient (BNVA) | payer MEDICARE, BC, SELFPAY | PROVIDERS: PCP Family Medicine; Visit Provider Clinical Nurse Specialist Adult Health | DX: R42 Dizziness and giddiness (principal) | CPT/HCPCS: 81000; 87086 ==

== ENCOUNTER 2025-07-28 05:00 | Outpatient (RCR) | payer MEDICARE, BC, SELFPAY | END 2025-08-26 23:59 | disposition home or self-care (01) | LOC: AST 05:00 | PROVIDERS: PCP Family Medicine; Visit Provider Family Medicine | DX: R13.12 Dysphagia, oropharyngeal phase (principal) | CPT/HCPCS: 92610 ==

== ENCOUNTER → 2025-08-14 08:34 | Outpatient (BNVA) | payer MEDICARE, BC, SELFPAY | PROVIDERS: PCP Family Medicine | DX: R00.2 Palpitations (principal); I49.8 Other specified cardiac arrhythmias; I49.3 Ventricular premature depolarization; I49.1 Atrial premature depolarization; I47.10 Supraventricular tachycardia, unspecified; R07.9 Chest pain, unspecified; R42 Dizziness and giddiness; R53.83 Other fatigue | CPT/HCPCS: 93242 ==

== ENCOUNTER → 2025-08-21 15:01 | Outpatient (BNVA) | payer MEDICARE, BC, SELFPAY | PROVIDERS: PCP Family Medicine; Visit Provider Internal Medicine Cardiovascular Disease | DX: R00.2 Palpitations (principal); R42 Dizziness and giddiness; R06.09 Other forms of dyspnea; R07.9 Chest pain, unspecified | CPT/HCPCS: 93005; 99204 ==

== ENCOUNTER 2025-08-27 05:00 | Outpatient (RCR) | payer MEDICARE, BC, SELFPAY | END 2025-09-26 23:59 | disposition home or self-care (01) | LOC: AST 05:00 | PROVIDERS: PCP Family Medicine; Visit Provider Family Medicine | DX: R13.12 Dysphagia, oropharyngeal phase (principal) | CPT/HCPCS: 92507 ==

== ENCOUNTER 2025-09-15 07:45 | Outpatient (CLI) | payer MEDICARE, BC, SELFPAY ==
--- NOTE | 2025-09-15 07:45 | USCV_ITS ---
Perlita Olvera Age: 80 Gender: F : 1945 Exam Date: 09/15/2025 08:07 Ordering Phys: Spenser Sawant MD ([email or web address]) Technologist: HANSEL Exam Location: [facility] [place] Indication: Lightheadedness BP: 124 / 72 HR: 68 Rhythm: Sinus Technical Quality: Adequate MEASUREMENTS (Male / Female) Normal Values 2D ECHO LV Diastolic Diameter PLAX 4.1 cm 4.2 - 5.9 / 3.9 - 5.3 cm IVS Diastolic Thickness 0.7 cm 0.6 - 1.0 / 0.6 - 0.9 cm IVS Systolic Thickness 1.3 cm LVPW Systolic Thickness 1.3 cm LVOT Diameter 2.0 cm LV Ejection Fraction 2D Teich 62.8 % LV Ejection Fraction MOD 4C 63.6 % LV Ejection Fraction MOD 2C 76.2 % LV Ejection Fraction 2C AL 75.7 % LA Diameter 3.1 cm RA Systolic Volume 4C AL 45.0 ml RA Systolic Volume 4C MOD 41.5 ml LA Sys Volume AL 40.7 cm cubed LA Sys Volume Index AL 23.8 cm cubed/m squared Aorta at Sinotubular Diameter 2.1 cm IVC Diameter 1.5 cm M-MODE LA Ao Ratio MM 1.4 AV Cusp Separation MM 1.4 cm DOPPLER AV Peak Velocity 141.0 cm/s LVOT Peak Velocity 101.0 cm/s AV Area Cont Eq vti 2.3 cm squared AV Area Cont Eq pk 2.2 cm squared MV Peak Velocity 88.0 cm/s MV Area PHT 5.4 cm squared Mitral E to A Ratio 0.8 TV Peak Velocity 200.5 cm/s TR Peak Velocity 210.0 cm/s TR Peak Gradient 17.6 mmHg TV Peak E Velocity 58.0 cm/s PV Peak Velocity 91.0 cm/s FINDINGS Left Ventricle Normal left ventricular size, systolic function and wall thickness with no regional wall motion abnormality. Left ventricular ejection fraction is 71%. Normal left ventricular diastolic function. Right Ventricle Normal right ventricular size and systolic function. Right Atrium Normal right atrial size. Left Atrium Normal left atrial size. IA Septum Normal appearance of the interatrial septum. Mitral Valve Normal mitral valve structure. No mitral valve stenosis. Mild mitralv valve regurgitation. Aortic Valve Normal aortic valve structure. No aortic valve stenosis or regurgitation. Tricuspid Valve Normal tricuspid valve structure. No tricuspid valve stenosis. Trace regurgitation. Normal pulmonary pressure. Pulmonic Valve Normal pulmonic valve structure. No pulmonic valve stenosis or regurgitation. Pericardium No pericardial effusion. Aorta Normal diameter of the aortic root and ascending thoracic aorta. IVC Normal IVC diameter. CONCLUSIONS Normal left ventricular size, systolic function and wall thickness with ejection fraction of 71%. Normal right ventricular size and systolic function. Mild mitral valve regurgitation. Spenser Sawant MD, FACC (Electronically Signed) Final Date: 16 September 2025 12:44 S
== END 2025-09-15 07:46 | disposition home or self-care (01) ==
LOC: RAD 07:47
PROVIDERS: PCP Family Medicine; Visit Provider Internal Medicine Cardiovascular Disease
DX: R42 Dizziness and giddiness (principal); I34.0 Nonrheumatic mitral (valve) insufficiency
CPT/HCPCS: 93306